=== PATIENT | female | born 1990 | race Caucasian/White ===

== ENCOUNTER 2023-03-27 09:17 | Day surgery (SDC) | payer MEDICAID ==
[~2023-03-27] VITALS: Ht 165.1 cm; Wt 54.5 kg
[2023-03-27 09:40] VITALS: BP 104/62; PULSE 61; RESP 16
[2023-03-27] MEDS ORDERED: NO HOME MEDS (09:49)
[2023-03-27] MEDS ORDERED: fentaNYL/PF 50MCG/1 ML 2ML syringe ONE (10:00)
[2023-03-27] MEDS ORDERED: LIDOcaine Viscous 15ml cup ONE (10:00)
[2023-03-27] MEDS ORDERED: MIDAZolam 1 MG/ML 5ML VIAL ONE (10:00)
[2023-03-27] MEDS ORDERED: diphenhydrAMINE 50 mg/ml inj ONE (10:00)
[2023-03-27 10:59] VITALS: BP 106/60; PULSE 65; RESP 15; O2SAT 99
[2023-03-27 11:09] VITALS: BP 103/62; PULSE 60; RESP 15; O2SAT 100
[2023-03-27 11:19] VITALS: BP 117/82; PULSE 66; RESP 19; O2SAT 97
== END 2023-03-27 11:32 | disposition home or self-care (01) ==
LOC: GI LAB 09:17
PROVIDERS: ATTEND Internal Medicine Gastroenterology
DX: K92.1 Melena (principal); D12.2 Benign neoplasm of ascending colon; K64.8 Other hemorrhoids; Z87.891 Personal history of nicotine dependence; Z72.89 Other problems related to lifestyle
CPT/HCPCS: 45385; 99152; 99153; C1889; J1200; J2250; J3010; J7030; Z7512; A4620